=== PATIENT | female | born 1930 | race Caucasian/White ===

== ENCOUNTER 2019-01-06 09:48 | Inpatient (IN) ==
[2019-01-06 10:19] LABS: Bilirubin,Urine Negative (Negative); Blood,Urine Negative (Negative); Clarity,Urine Clear (Clear); Color,Urine Yellow (Yellow); Glucose,Urine (UA) Normal (Normal); Ketones,Urine Negative (Negative); Leukocyte Esterase,Urine Negative (Negative); Nitrite,Urine Negative (Negative); PH,Urine 7.5 pH Units (5.0-8.0); Protein,Urine 100 mg/dL (Neg-Trace); Urobilinogen,Urine Normal (Normal)
[2019-01-06 10:27] LABS: Hyaline Casts,Urine Few per lpf (None-Few)
[2019-01-06 10:28] LABS: Granular Casts,Urine Few per lpf (None Seen)
[2019-01-06 10:30] LABS: RBC,Urine 0-3 per hpf (0-3); WBC,Urine 0-3 per hpf (0-3); White Blood Cell Casts,Urine Few per lpf (None Seen)
[2019-01-06 10:31] LABS: Amorphous Sediment,Urine Few (Few); Bacteria,Urine Few per hpf (None-Few)
--- NOTE | 2019-01-06 10:40 | Emergency Department Note ---
Disposition Clinical Impression: HCAP (healthcare-associated pneumonia) Disposition: Admitted As Inpatient Condition: Fair General Adult HPI - General Chief complaint: ED General Medical Stated complaint: low BP Time Seen by Provider: 01/06/19 09:56 Source: patient, EMS Mode of arrival: EMS Limitations: other (History dementia) Nursing Notes Reviewed: Yes Vital Signs Reviewed: Yes - History of Present Illness HPI Narrative: 88-year-old female coming from halfway history of dementia presents to the emergency department with low blood pressure and irregular heart rate. According to staff they said they got 1 blood pressure of 80/60 the staff prior to that one hour earlier got a normal blood pressure of 120/80. He also knows that her heart rate was ranging everywhere from 70-90. She also had a pulse ox level of 88. She does have oxygen to use when necessary the place that on her and she is been 93% since then. They called EMS for transport due to these changes. EMS arrived they said they had normal blood pressure of 120/80 heart rate has been 80 the entire time and they said was 93% on the 2 L that she was on via nasal cannula. Patient is not having any complaints at this time but is a poor historian due to dementia. Her only POA is her 90-year-old sister who is in the same halfway and is unable to come. There is no other family with the patient. Otherwise patient has no other complaints. The at the halfway said she had UTI approximately one week ago was on antibiotics and finished up a seen sooner been the same since then. Otherwise no other complaints including fevers, chills, nausea, vomiting, headache, blurry vision, neck pain, back pain, chest pain, shortness of breath, abdominal pain, change in bowel, pain with urination, pain or tingling in any arms or legs or generalized weakness. Pain Scale: 0 - Related Data Allergies Allergy/AdvReac Type Severity Reaction Status Date / Time No Known Allergies Allergy Verified 01/06/19 09:59 All systems ED: reviewed and negative except as stated. Review of Systems: As Per HPI Past Medical History - Past Medical History Attestation: Yes The following information was validated with the patient. Source: patient Medical history: Reports: CHF, CVA, dementia, hyperlipidemia, hypertension, thyroid disease, syncope Psychiatric history: Reports: anxiety, depression, schizophrenia - Social History Smoking Status: Unknown if ever smoked Alcohol use: Reports: none Drug use: Reports: none Physical Exam - General General appearance: alert - Head Head exam: atraumatic, normocephalic, normal inspection - Eye Eye exam: Present: normal appearance, PERRL, EOMI, other (2 mm pupils bilaterally.) - ENT ENT exam: normal exam, normal oropharynx, mucous membranes moist - Neck Neck exam: Present: normal inspection, full ROM, trachea midline - Chest Chest inspection: Present: normal inspection, symmetric chest wall rise - Respiratory Respiratory exam: Present: normal lung sounds bilaterally - Cardiovascular Cardiovascular exam: Present: regular rate, normal rhythm, normal heart sounds - Abdominal Exam Abdominal exam: Present: soft, Non-Tender, normal bowel sounds. Absent: tenderness, distention, guarding, rebound, rigidity - Extremities Exam Extremities exam: Present: normal inspection, full ROM. Absent: tenderness, pedal edema - Back Exam Back exam: Present: normal inspection, full ROM. Absent: tenderness, CVA tenderness (R), CVA tenderness (L) - Neurological Exam Neurological exam: Present: alert. Absent: oriented X3 (Oriented [address] which is normal for her dementia history.), motor sensory deficit - Skin Skin exam: Present: warm, dry, intact, normal color Course Course Narrative: There is been no recent falls or noticeable altered mental status based on her history of dementia. We will get basic labs including CBC, BMP, troponin EKG chest x-ray as well as straight catheter urinalysis. Patient okay with this plan. Disposition pending results. Vital Signs Temperature 98.8 F 01/06/19 09:51 Pulse Rate 81 01/06/19 09:51 Respiratory Rate 19 01/06/19 09:51 Blood Pressure 126/60 01/06/19 09:51 O2 Sat by Pulse Oximetry 93 01/06/19 09:51 Temperature 97.6 F 01/06/19 12:06 Pulse Rate 100 01/06/19 12:06 Respiratory Rate 24 01/06/19 12:06 Blood Pressure 135/67 01/06/19 12:06 O2 Sat by Pulse Oximetry 94 01/06/19 12:06 Oxygen Delivery Oxygen Delivery Room Air Medical Decision Making - MDM Narrative Medical decision making narrative: Labs came back with no acute abnormalities. Patient's blood pressure is been stable here the lowest being 126/80 heart rate also was normal EKG had no acute findings. Chest x-ray did show a pneumonia with bilateral pleural effusions. Due to patient being a halfway this most likely his hospital acquired pneumonia so we did start treatment including Zosyn, vancomycin, azithromycin. Patient is stable at this time. I spoke with the hospitalist Dr. Zarco who agreed to admit the patient to their service for hospital acquired pneumonia. Patient stable at this time Spoke with the nursing facility staff and they said they have documentation where she is a full code and her POA is her 90-year-old sister who also is living at the nursing facility is unable to come to the emergency department. Chest X-Ray 01/06/19 09:58 IMPRESSION: Small to moderate left pleural effusion and left basilar consolidation. Patchy right mid to lower lung infiltrate. Findings may reflect multifocal pneumonia and left parapneumonic effusion in the correct clinical setting. D/ / 01/06/2019 10:59:32 Diego Zarco MD / Alyx Foster Interpreting Provider: Diego Zarco MD - Medical Records Medical records reviewed: Yes I reviewed the patient's medical records. - Lab Data Lab results reviewed: Yes I reviewed the patient's lab results. Result diagrams: 01/06/19 10:51 01/06/19 10:51 Lab Results 01/06/19 01/06/19 01/06/19 Range/Units 10:51 10:51 Unknown WBC 8.2 (4.3-11.1) K/mcL RBC 4.28 (3.82-4.97) M/mcL Hgb 12.1 (11.5-15.4) g/dL Hct 38.1 (35.3-44.9) % MCV 89.0 (83.0-100.0) fL MCH 28.3 (28.0-33.3) pg MCHC 31.8 (31.6-35.5) g/dL RDW 15.0 H (11.5-14.5) % Plt Count 268 (140-400) K/mcL MPV 9.0 L (9.4-12.4) fL Immature Gran % 0.5 (0-4) % Seg Neutrophils % 67.7 % Lymphocytes % 19.0 % Monocytes % 10.5 % Eosinophils % 1.7 % Basophils % 0.6 % Neutrophils # 5.5 (1.6-8.9) K/mcL Lymphocytes # 1.6 (0.6-4.6) K/mcL Monocytes # 0.9 (0.0-1.3) K/mcL Eosinophils # 0.1 (0.0-0.6) K/mcL Basophils # 0.1 (0.0-0.2) K/mcL Sodium 132 L (136-145) mEq/L Potassium 4.0 (3.5-5.1) mEq/L Chloride 100 (98-107) mEq/L Carbon Dioxide 26 (23-29) mEq/L BUN 15 (8-23) mg/dL Creatinine 1.14 (0.60-1.20) mg/dL Est GFR ( Amer) 55 L (> 60) Est GFR (Non-Af Amer) 45 L (> 60) BUN/Creatinine Ratio 13 (6-26) Glucose 116 H (70-105) mg/dL Calculated Osmolality 276 L (280-300) Calcium 8.7 (8.6-10.3) mg/dL Magnesium 2.1 (1.6-2.6) mg/dL Troponin I < 0.03 (< 0.04) ng/mL Urine Color Yellow (Yellow) Urine Clarity Clear (Clear) Urine pH 7.5 (5.0-8.0) pH Units Ur Specific [place] 1.020 (1.010-1.025) Urine Protein 100 H (Neg-Trace) mg/dL Urine Glucose (UA) Normal (Normal) mg/dL Urine Ketones Negative (Negative) mg/dL Urine Blood Negative (Negative) Urine Nitrite Negative (Negative) Urine Bilirubin Negative (Negative) Urine Urobilinogen Normal (Normal) mg/dL Ur Leukocyte Esterase Negative (Negative) Urine Microscopic RBC 0-3 (0-3) per hpf Urine Microscopic WBC 0-3 (0-3) per hpf Amorphous Sediment Few (Few) Urine Bacteria Few (None-Few) per hpf Hyaline Casts Few (None-Few) per lpf Granular Casts Few H (None Seen) per lpf WBC Casts Few H (None Seen) per lpf Ur Culture Indicated? NO (NO) - Radiology Data Radiology results reviewed: Yes I reviewed the patient's radiology results. - EKG Data EKG #1 EKG attestation: Yes I reviewed and interpreted this EKG. EKG results narrative: EKG done at 0957 shows sinus rhythm at a rate of 82, SD interval 158, QRS 85, QTC 448. There is no acute ST changes no acute T-wave changes no other signs of ischemia. There is some sinus positive this but is regular. No hypertrophy, heart block, heart strain. No Alyx Peter V/V/HOCM. No changes when compared with old EKG Attestation Statement - Attestation Attestation: I, Keagan Mullen, examined this patient and my medical decision-making was reviewed with the TRAVEL DIRECTOR/PA/Advanced Practice Nurse/Resident Physician. I agree with the documented findings, disposition and treatment plan as described except to the extent set forth below. History source: Patient is unable to provide information for this note. Info was gathered from the patient, hospital staff, the patient's chart. History limitations: Patient condition Medications: As per nurses note 88-year-old female presents emergency Department with concerns of low blood pressure and hypoxia. Patient was sent in the emergency department from the halfway. Patient is unable to give a history regarding her case and presentation. Patient has infiltrate on chest x-ray which could be the source of her hypoxia. Patient has remained stable in emergency department. She will be started on antibiotics in the emergency department and will be admitted to [facility] hospitalist for further care and evaluation.
[2019-01-06 11:05] LABS: Basophils # 0.1 K/mcL (0.0-0.2); Basophils % 0.6 %; Eosinophils # 0.1 K/mcL (0.0-0.6); Eosinophils % 1.7 %; Hematocrit 38.1 % (35.3-44.9); Hemoglobin 12.1 g/dL (11.5-15.4); Immature Granulocytes % 0.5 % (0-4); Lymphocytes # 1.6 K/mcL (0.6-4.6); Mean Corpuscular HGB Conc 31.8 g/dL (31.6-35.5); Mean Corpuscular Hemoglobin 28.3 pg (28.0-33.3); Monocytes # 0.9 K/mcL (0.0-1.3); Monocytes % 10.5 %; Neutrophils # 5.5 K/mcL (1.6-8.9); Platelet Count 268 K/mcL (140-400); Red Blood Count 4.28 M/mcL (3.82-4.97); Segmented Neutrophils % 67.7 %
[2019-01-06 11:23] LABS: Troponin I < 0.03 ng/mL (< 0.04)
[2019-01-06 11:24] LABS: BUN/Creatinine Ratio 13 (6-26); Blood Urea Nitrogen 15 mg/dL (8-23); Calcium 8.7 mg/dL (8.6-10.3); Carbon Dioxide 26 mEq/L (23-29); Chloride 100 mEq/L (98-107); Glucose 116 mg/dL (70-105); Magnesium 2.1 mg/dL (1.6-2.6); Osmolality,Calculated 276 (280-300); Sodium 132 mEq/L (136-145); eGFR For Non-African Americans 45 (> 60)
[2019-01-06] MEDS ORDERED: Piperacillin/Tazobactam 3.375 GM in 0.9 % Sodium Chloride Mini Bag 100 ML IVPB ONE (13:23)
[2019-01-06] MEDS ORDERED: Azithromycin 500 MG in D5% in Water 250 ML IVPB ONE (13:23)
[2019-01-06] MEDS ORDERED: Naloxone 0.4 MG/ML INJ IVP PRN (15:47)
--- NOTE | 2019-01-06 16:59 | Internal Med History&Physical ---
Date of Encounter: 01/06/19 Time of Encounter: 17:00 Internal Medicine - H&P: HPI Chief complaint: Hypotensive, less responsive and hypoxic per shelter History of present illness: Ms. Cabral is a 88 year old female with pmh of dementia, hyperlipidemia, thyroid disease presenting from shelter with hypotension, irregular heart rate and hypoxia. History was obtained from ER and shelter records as patient has dementia and is unable to provide any information. Per shelter staff, patient was reported to have a BP of 80/60. She was also noted to be desa turating to 88, and she is reportedly not on home oxygen; she was also noted to be more lethargic than her baseline and that's why they called EMS In the ER, she was noted to have a small to moderate left pleural effusion and left basilar consolidation. She was started on antibiotics and she is being admitted for health care associated pneumonia Past Med Surg Social Fam HX - Past Medical History Medical history: CHF, CVA, dementia, hyperlipidemia, hypertension, thyroid disease, syncope Additional medical history: parkinson's Psychiatric history: anxiety, depression, schizophrenia - Social History Smoking Status: Unknown if ever smoked Alcohol use: none Drug use: none Internal Medicine - H&P: Meds Allergy/AdvReac Type Severity Reaction Status Date / Time No Known Allergies Allergy Verified 01/06/19 09:59 ROS unobtainable: due to mental status All Systems PM: A 10-system review of systems was performed and is negative for pertinent findings except as documented above in the HPI. - Constitutional Vitals: Temp Pulse Resp BP Pulse Ox 97.6 F 80 21 106/53 94 01/06/19 12:06 01/06/19 16:07 01/06/19 16:43 01/06/19 16:43 01/06/19 16:07 Exam: NAD. Confused - Head Head exam: Present: atraumatic, normocephalic - Eye Eye exam: Present: PERRL, conjuntiva pink, sclera anicteric Pupils: Present: PERRL - Neck Neck exam general surgery: Present: supple, trachea midline. Absent: lymphadenopathy - Respiratory Respiratory exam: Present: CTAB. Absent: accessory muscle use, rales, rhonchi, wheezes - Cardiovascular Cardiovascular exam: Present: irregular rhythm, RRR, +S1, +S2. Absent: diastolic murmur, gallop, rubs, systolic murmur - GI/Abdominal GI/Abdominal exam: Present: normal bowel sounds, soft, no peritoneal signs. Absent: distended, tenderness - Extremities Exam Extremities exam: Present: warm, radial pulses palpable and symmetrical. Absent: calf tenderness, cyanotic, pedal edema - Neurological Exam Neurological exam: Present: CN II-XII intact, oriented X3, no focal deficits. Absent: pronater drift, facial droop, speech deficit - Skin Skin exam: Present: dry, intact Internal Med - H&P Results - Labs CBC & Chem 7: 01/06/19 10:51 01/06/19 10:51 Labs: Short CBC 01/06/19 Range/Units 10:51 WBC 8.2 (4.3-11.1) K/mcL Hgb 12.1 (11.5-15.4) g/dL Hct 38.1 (35.3-44.9) % Plt Count 268 (140-400) K/mcL Neutrophils # 5.5 (1.6-8.9) K/mcL BMP 01/06/19 10:51 Sodium 132 L Potassium 4.0 Chloride 100 Carbon Dioxide 26 BUN 15 Creatinine 1.14 Glucose 116 H Calcium 8.7 Cardiac Enzymes 01/06/19 Range/Units 10:51 Troponin I < 0.03 (< 0.04) ng/mL Urine 01/06/19 Range/Units Unknown Urine Color Yellow (Yellow) Urine Clarity Clear (Clear) Urine pH 7.5 (5.0-8.0) pH Units Ur Specific [place] 1.020 (1.010-1.025) Urine Protein 100 H (Neg-Trace) mg/dL Urine Glucose (UA) Normal (Normal) mg/dL - Impressions ITS Impressions Chest X-Ray 01/06/19 09:58 IMPRESSION: Small to moderate left pleural effusion and left basilar consolidation. Patchy right mid to lower lung infiltrate. Findings may reflect multifocal pneumonia and left parapneumonic effusion in the correct clinical setting. D/ / 01/06/2019 10:59:32 Diego Zarco MD / Alyx Foster Interpreting Provider: Diego Zarco MD - Assessment and plan (1) HCAP (healthcare-associated pneumonia) Current Visit: Yes Status: Acute Assessment and plan: Pt comes in with hypoxia and hypotension likely secondary to multifocal pnuemonia. CXR shows consolidation and pleural effusion Obtain blood cultures. Start on zosyn. Obtain CT chest. IR consult to assess for thoracentesis (2) Hypotension Current Visit: Yes Status: Acute Assessment and plan: See #1. Continue fluids and antibiotics Qualifiers: Qualified Code(s): I95.9 - Hypotension, unspecified (3) Hypoxia Current Visit: Yes Status: Acute Assessment and plan: [place] 2/2 to pnuemonia. continue fluids and abx (4) DVT prophylaxis Current Visit: Yes Status: Acute Assessment and plan: Heparin sc - Time Spent With Patient Total time spent is greater than 50% in coordination of care (as documented) at patient's floor/unit and/or counseling patient:
[2019-01-06] MEDS: 0.9 % Sodium Chloride 1,000 ML IVC SCH (17:56)
[2019-01-06] MEDS: Piperacillin/Tazobactam 3.375 GM in 0.9 % Sodium Chloride Mini Bag 100 ML IVPB SCH (21:36)
[2019-01-07 04:44] LABS: Basophils # 0.1 K/mcL (0.0-0.2); Basophils % 0.8 %; Eosinophils # 0.1 K/mcL (0.0-0.6); Eosinophils % 2.1 %; Hematocrit 41.6 % (35.3-44.9); Hemoglobin 12.7 g/dL (11.5-15.4); Immature Granulocytes % 0.6 % (0-4); Lymphocytes # 1.3 K/mcL (0.6-4.6); Lymphocytes % 19.2 %; Mean Corpuscular HGB Conc 30.5 g/dL (31.6-35.5); Mean Corpuscular Hemoglobin 28.2 pg (28.0-33.3); Mean Corpuscular Volume 92.4 fL (83.0-100.0); Mean Platelet Volume 9.4 fL (9.4-12.4); Monocytes # 0.6 K/mcL (0.0-1.3); Monocytes % 9.1 %; Neutrophils # 4.5 K/mcL (1.6-8.9); Platelet Count 232 K/mcL (140-400); Red Cell Distribution Width 14.6 % (11.5-14.5); Segmented Neutrophils % 68.2 %
[2019-01-07 05:06] LABS: BUN/Creatinine Ratio 15 (6-26); Blood Urea Nitrogen 13 mg/dL (8-23); Calcium 8.2 mg/dL (8.6-10.3); Carbon Dioxide 26 mEq/L (23-29); Chloride 104 mEq/L (98-107); Glucose 110 mg/dL (70-105); Magnesium 1.9 mg/dL (1.6-2.6); Osmolality,Calculated 283 (280-300); Phosphorous 3.4 mg/dL (2.7-4.5); Potassium 3.9 mEq/L (3.5-5.1); Sodium 136 mEq/L (136-145); eGFR For Non-African Americans > 60 (> 60)
[2019-01-07] MEDS: Piperacillin/Tazobactam 3.375 GM in 0.9 % Sodium Chloride Mini Bag 100 ML IVPB SCH ×3 (06:45→22:21)
--- NOTE | 2019-01-07 11:25 | Internal Med Progress Note ---
Hospitalist Progress Note - Encounter Date of Encounter: 01/07/19 Time of Encounter: 11:25 - Subjective Interval History: 88 year old female with pmh of dementia, hyperlipidemia, thyroid disease presenting from alf with hypotension, irregular heart rate and hypoxia. History was obtained from ER and alf records as patient has dementia a nd is unable to provide any information. Per alf staff, patient was reported to have a BP of 80/60. She was also noted to be desaturating to 88, and she is reportedly not on home oxygen; she was also noted to be more lethargic than her baseline and that's why they called EMS - Exam Vitals: Temp Pulse Resp BP Pulse Ox 98.3 F 105 18 150/75 95 01/07/19 07:30 01/07/19 07:30 01/07/19 07:30 01/07/19 07:30 01/07/19 07:30 Exam: Gen - Awake, alert, oriented x 3, no acute distress HEENT - NCAT, PERRLA, EOMI, hearing grossly intact, oropharynx benign CV - RRR, normal S1 and S2, no M/R/G, no BLE edema Resp - Normal WOB, CTAB, no W/R/R GI - Soft, NT/ND, no masses, normal bowel sounds, Skin - Warm, dry, no rashes/lesions/ulcers Psych - Normal mood and affect, no depression or anxiety - Assessment and Plan (1) HCAP (healthcare-associated pneumonia) Current Visit: Yes Status: Acute Assessment and Plan: Pt comes in with hypoxia and hypotension likely secondary to multifocal pnuemonia. CXR shows consolidation and pleural effusion Obtain blood cultures. Start on zosyn. CT chest showed biateral pleural effusions. Patient does not appear to be on diuresis at the alf Refused thoracentesis this am. Obtain 2D echo to assess cardiac function to r/o CHF Palliative care consulted for custodial goals of care (2) Congestive heart failure Current Visit: Yes Status: Acute Assessment and Plan: Patient has unknown EF and unknown cardiac status. HAs bilateral pleural effusion. Will start on lasix and obtain 2D echo (3) Hypotension Current Visit: Yes Status: Acute Assessment and Plan: See #1. Continue fluids and antibiotics (4) Hypothyroidism Current Visit: Yes Status: Acute Assessment and Plan: Continue levothyroxine (5) Hypoxia Current Visit: Yes Status: Acute Assessment and Plan: [place] 2/ to pnuemonia. continue fluids and abx (6) DVT prophylaxis Current Visit: Yes Status: Acute Assessment and Plan: Heparin sc - Time Spent with Patient Total time spent is greater than 50% in coordination of care (as documented) at patient's floor/unit and/or counseling patient: Internal Medicine: Result - Labs CBC & Chem 7: 01/07/19 04:11 01/07/19 04:11 Labs: Short CBC 01/07/19 Range/Units 04:11 WBC 6.6 (4.3-11.1) K/mcL Hgb 12.7 (11.5-15.4) g/dL Hct 41.6 (35.3-44.9) % Plt Count 232 (140-400) K/mcL Neutrophils # 4.5 (1.6-8.9) K/mcL BMP 01/07/19 04:11 Sodium 136 Potassium 3.9 Chloride 104 Carbon Dioxide 26 BUN 13 Creatinine 0.84 Glucose 110 H Calcium 8.2 L - Impressions Impressions Chest CT 01/06/19 17:23 IMPRESSION: Cardiomegaly, moderate bilateral pleural effusions and pulmonary edema. Dependent consolidation associated with the effusions likely represents passive atelectasis. Pneumonia is also possible. Small pericardial effusion. D/ / Kirsten Capps Cha, MD / Kirsten Capps Cha, MD Interpreting Provider: Kirsten Capps Cha, MD Consult Discharge Plan - Plan Referrals: Moreno Ramirez MD [Primary Care Provider] - (3) Hypotension Qualifiers: Qualified Code(s): I95.9 - Hypotension, unspecified
[2019-01-07] MEDS: Furosemide 20 MG/2 ML VIAL IVP SCH ×2 (12:35→22:21)
--- NOTE | 2019-01-07 14:25 | Palliative - Consult Note ---
Date of Encounter: 01/07/19 Time of Encounter: 13:30 - Assessment and Plan (1) Goals of care, counseling/discussion Current Visit: Yes Status: Acute Assessment and plan: Met with patient regarding goals of care. Patient expressed desire to return to [facility], reports she wishes she would have never came to hospital. Prior to assessment, spent 20 minutes with patient's sister and niece Maddy via telephone regarding goals of care. Sadie (sister) reports she is MPOA; however, does not really want to make decisions. Keeps asking what patient wants. Informed would meet with patient and then return phone call. Upon completion of assessment, called and spoke with Patient's MPOA/Sister Sadie via telephone again, as well as Maddy (niece). Gave update on what patient was telling this automobile service writer. Expressed would not want patient intubated, reported they would not want CPR performed. Change CODE STATUS to DNRCCA/DNI. Would like for patient to continue getting treatment here at [facility]. They do not feel justified in forcing patient to have thoracentesis. Sadie has difficulty making decisions without prompting from daughter Maddy. Maddy reports there is another sibling Jeronimo; however, noone has contact information for him. Sadie would like to have clinical update daily to make best decisions regarding her sister. Understands there are risks of not performing procedure, including not breathing and lung collapse. Sadie Riggs (Sister/MPOA) [phone] Bettina Riggs (Niece) [phone] Jeronimo Chaneyffe (brother) Palliative care team will continue to follow. (2) Dementia Current Visit: Yes Status: Acute Qualifiers: Qualified Code(s): F03.90 - Unspecified dementia without behavioral disturbance (3) HCAP (healthcare-associated pneumonia) Current Visit: Yes Status: Acute Assessment and plan: IV antibiotics per primary team. (4) Hypotension Current Visit: Yes Status: Acute Assessment and plan: BP stable. Qualifiers: Qualified Code(s): I95.9 - Hypotension, unspecified (5) Hypoxia Current Visit: Yes Status: Acute Assessment and plan: 93% on 2.5L NC. Palliative-CN HPI - Data of Consult Patient: new to practice Consult date: 01/07/19 Requesting Physician: Reny Zarco MD Primary Care Provider: Moreno Ramirez MD - Consult Narrative Palliative Care/Comfort Measures: Palliative care Reason for consult: GOC; Pleural effusion, refusing thoracentesis; demenia; and MPOA dementia History of present illness: Ms. Cabral is a 88 year old female Arrived to [facility] as a transfer from [facility] on 01/06/19, due to low blood pressure, less responsive, and hypoxia. PMH: CHF, CVA, dementia, hyperlipidemia, hypertension, thyroid disease, syncope, anxiety, depression, schizophrenia, and Parkinsons disease. Patient found to have bilateral pleural effusions and atelectasis; IV antibiotics initiated for HCAP. IR consulted for Thoracentesis, patient refused. Palliative care consulted for goals of care, pleural effusion refusing thora centesis, and has dementia. Patient lying in bed with head covered upon arrival for assessment. Patient alert and oriented with verbal stimulation. Patient able to identify she is in a hospital, reported it is 2017, President Karely is President, lives at [place], and was able to self identify, as well as identify sister Sadie and Brother as Jeronimo. No family present at bedside. Patient denies pain, anxiety, dyspnea, nausea, vomiting. Prior to patient assessment, called and spoke with staff at [facility]. Patient's sister Sadie was reported to be oriented, alert, and lacking dementia diagn osis. CC: Reny Zarco MD - Time Spent with Patient Time: Total time spent is greater than 50% in coordination of care (as documented) at patient's floor/unit and/or counseling patient: Time with patient: 60 minutes Past Med Surg Social Fam HX - Past Medical History Medical history: CHF, CVA, dementia, hyperlipidemia, hypertension, thyroid disease, syncope Additional medical history: parkinson's Psychiatric history: anxiety, depression, schizophrenia - Social History Smoking Status: Unknown if ever smoked Alcohol use: none Drug use: none Medications and Allergies Allergy/AdvReac Type Severity Reaction Status Date / Time No Known Allergies Allergy Verified 01/06/19 09:59 - Constitutional Constitutional ROS PAL: no decreased appetite, no frequent falls, no lethargy - Cardiovascular Cardiovascular ROS: no chest pain, no dyspnea on exertion - Respiratory Respiratory: cough, no dyspnea - Gastrointestinal Gastrointestinal: no diarrhea, no nausea, no vomiting - Musculoskeletal Musculoskeletal ROS IM: myalgias (right shoulder pain, sometimes.) - Neurological Neurological ROS: memory loss - Psychiatric Psychiatric general PM: anxiety, difficulty concentrating Palliative Care-Exam - Constitutional Vitals: Temp Pulse Resp BP Pulse Ox 97.8 F 109 16 112/69 93 01/07/19 11:31 01/07/19 11:31 01/07/19 11:31 01/07/19 11:31 01/07/19 11:31 General appearance: Present: cooperative, disheveled, no acute distress, obese - Head Head Exam: Present: atraumatic, normal inspection - Eye Eye exam: Present: normal appearance, conjuntiva pink. Absent: periorbital swelling, periorbital tenderness - ENT ENT exam: Present: mucous membranes dry, normal external ear exam - Expanded ENT Exam Mouth Exam: Absent: drooling - Neck Neck exam: Present: full ROM, normal inspection. Absent: tenderness - Respiratory Respiratory exam: Present: accessory muscle use, decreased breath sounds, wheezes. Absent: respiratory distress - Cardiovascular Cardiovascular exam: Present: +S1, +S2 - GI/Abdominal Exam GI/Abdominal exam: Present: normal bowel sounds, soft. Absent: tenderness - Expanded GI/Abdominal Exam GI/Abdominal exam: Absent: ascites - Rectal Rectal exam: Present: deferred - Extremities Exam Extremities exam: Present: full ROM, normal inspection. Absent: calf tenderness, pedal edema - Back Exam Back exam: Present: full ROM, normal inspection. Absent: rash noted, tenderness - Neurological Exam Neurological exam: Present: alert, strengths equal and symetr throughout. Absent: altered, oriented X3 (disoriented times 1 year) - Expanded Neurological Exam Patient oriented to: Present: person, place. Absent: time Coma Scale Eye Opening: To Voice Coma Scale Motor Response: Obeys Commands Coma Scale Verbal Response: Oriented Coma Scale Total: 14 Internal Medicine - CN: Reslt - Labs CBC & Chem 7: 01/07/19 04:11 01/07/19 04:11 Labs: Short CBC 01/07/19 Range/Units 04:11 WBC 6.6 (4.3-11.1) K/mcL Hgb 12.7 (11.5-15.4) g/dL Hct 41.6 (35.3-44.9) % Plt Count 232 (140-400) K/mcL Neutrophils # 4.5 (1.6-8.9) K/mcL BMP 01/07/19 04:11 Sodium 136 Potassium 3.9 Chloride 104 Carbon Dioxide 26 BUN 13 Creatinine 0.84 Glucose 110 H Calcium 8.2 L - Impressions Impressions Chest CT 01/06/19 17:23 IMPRESSION: Cardiomegaly, moderate bilateral pleural effusions and pulmonary edema. Dependent consolidation associated with the effusions likely represents passive atelectasis. Pneumonia is also possible. Small pericardial effusion. D/ / Kirsten Capps Cha, MD / Kirsten Capps Cha, MD Interpreting Provider: Kirsten Capps Cha, MD Consult Discharge Plan - Plan Referrals: Moreno Ramirez MD [Primary Care Provider] - Palliative Quality Palliative Quality: Screen for Code Status: Yes, Screen for Goals of Care: Yes, Screen for Pain: Yes, If Pain Regimen Started, Initiate Bowel Regimen: NA, Screen for Nausea/Vomitting: Yes Code Status: 01/06/19 15:47 Resuscitation Status: Active [RES] Routine Comment: Resuscitation Status: Full Code Palliative Scale - Palliative Performance Scale How ambulatory is this patient?: Mainly sit / lie What is patient's level of activity and evidence of disease?: Unable hobby/housework, Significant disease How much self-care assistance does patient require?: Considerable assistance required How much oral intake does the patient have?: Normal or reduced What is this patient's level of consciousness?: Full or confusion Palliative Performance Score: 70 %
[2019-01-07] MEDS: Carbidopa/Levodopa 25/100 TABLET PO SCH ×2 (15:09→22:21)
[2019-01-08 04:08] LABS: Basophils # 0.1 K/mcL (0.0-0.2); Basophils % 0.8 %; Eosinophils # 0.3 K/mcL (0.0-0.6); Eosinophils % 4.2 %; Hemoglobin 11.8 g/dL (11.5-15.4); Immature Granulocytes % 0.3 % (0-4); Lymphocytes # 1.7 K/mcL (0.6-4.6); Lymphocytes % 26.7 %; Mean Corpuscular HGB Conc 31.1 g/dL (31.6-35.5); Mean Platelet Volume 9.5 fL (9.4-12.4); Monocytes # 0.6 K/mcL (0.0-1.3); Monocytes % 9.2 %; Neutrophils # 3.8 K/mcL (1.6-8.9); Platelet Count 274 K/mcL (140-400); Red Blood Count 4.22 M/mcL (3.82-4.97); Red Cell Distribution Width 14.6 % (11.5-14.5); Segmented Neutrophils % 58.8 %
[2019-01-08 04:27] LABS: BUN/Creatinine Ratio 16 (6-26); Blood Urea Nitrogen 13 mg/dL (8-23); Calcium 8.3 mg/dL (8.6-10.3); Carbon Dioxide 29 mEq/L (23-29); Chloride 105 mEq/L (98-107); Glucose 111 mg/dL (70-105); Magnesium 1.8 mg/dL (1.6-2.6); Osmolality,Calculated 289 (280-300); Phosphorous 2.9 mg/dL (2.7-4.5); Potassium 3.6 mEq/L (3.5-5.1); Sodium 139 mEq/L (136-145); eGFR For Non-African Americans > 60 (> 60)
[2019-01-08] MEDS: Piperacillin/Tazobactam 3.375 GM in 0.9 % Sodium Chloride Mini Bag 100 ML IVPB SCH (06:16)
[2019-01-08] MEDS: 0.9 % Sodium Chloride 1,000 ML IVC SCH (06:17)
[2019-01-08] MEDS: Carbidopa/Levodopa 25/100 TABLET PO SCH ×2 (08:57→14:00)
[2019-01-08] MEDS: Furosemide 20 MG/2 ML VIAL IVP SCH (08:57)
[2019-01-08] MEDS ORDERED: Aspirin 81 MG TAB.CHEW PO SCH (09:00)
--- NOTE | 2019-01-08 09:52 | Internal Med Progress Note ---
Hospitalist Progress Note - Encounter Date of Encounter: 01/08/19 Time of Encounter: 09:50 - Subjective Interval History: 88 year old female with pmh of dementia, hyperlipidemia, thyroid disease presenting from detention with hypotension, irregular heart rate and hypoxia. History was obtained from ER and detention records as patient has dementia a nd is unable to provide any information. Per detention staff, patient was reported to have a BP of 80/60. She was also noted to be desaturating to 88, and she is reportedly not on home oxygen; she was also noted to be more lethargic than her baseline and that's why they called EMS - Exam Vitals: Temp Pulse Resp BP Pulse Ox 98.0 F 99 18 156/84 92 01/08/19 06:58 01/08/19 06:58 01/08/19 06:58 01/08/19 06:58 01/08/19 09:10 Exam: Gen - Awake, alert, oriented x 3, no acute distress HEENT - NCAT, PERRLA, EOMI, hearing grossly intact, oropharynx benign CV - RRR, normal S1 and S2, no M/R/G, no BLE edema Resp - Normal WOB, CTAB, no W/R/R GI - Soft, NT/ND, no masses, normal bowel sounds, Skin - Warm, dry, no rashes/lesions/ulcers Psych - Normal mood and affect, no depression or anxiety - Assessment and Plan (1) HCAP (healthcare-associated pneumonia) Status: Acute Assessment and Plan: Pt comes in with hypoxia and hypotension likely secondary to multifocal pnuemonia. CXR shows consolidation and pleural effusion Obtain blood cultures. Start on zosyn. CT chest showed biateral pleural effusions. Patient does not appear to be on diuresis at the detention Refused thoracentesis this am. 2D echo came back with preserved EF and diastolic CHF Palliative care consulted for intermediate card tender goals of care (2) Congestive heart failure Status: Acute Assessment and Plan: Patient has unknown EF and unknown cardiac status. Has bilateral pleural effusion. Will start on lasix and obtain 2D echo Echo came back with diastolic dysfunction and preserved EF (3) Hypotension Status: Acute Assessment and Plan: See #1. Continue fluids and antibiotics (4) Hypothyroidism Status: Acute Assessment and Plan: Continue levothyroxine (5) Hypoxia Status: Acute Assessment and Plan: Jeff / to pnuemonia. continue fluids and abx (6) DVT prophylaxis Status: Acute Assessment and Plan: Heparin sc - Time Spent with Patient Total time spent is greater than 50% in coordination of care (as documented) at patient's floor/unit and/or counseling patient: Internal Medicine: Result - Labs CBC & Chem 7: 01/08/19 03:40 01/08/19 03:40 Labs: Short CBC 01/08/19 Range/Units 03:40 WBC 6.4 (4.3-11.1) K/mcL Hgb 11.8 (11.5-15.4) g/dL Hct 38.0 (35.3-44.9) % Plt Count 274 (140-400) K/mcL Neutrophils # 3.8 (1.6-8.9) K/mcL BMP 01/08/19 03:40 Sodium 139 Potassium 3.6 Chloride 105 Carbon Dioxide 29 BUN 13 Creatinine 0.83 Glucose 111 H Calcium 8.3 L - Impressions Impressions Chest X-Ray 01/06/19 09:58 IMPRESSION: Small to moderate left pleural effusion and left basilar consolidation. Patchy right mid to lower lung infiltrate. Findings may reflect multifocal pneumonia and left parapneumonic effusion in the correct clinical setting. D/ / 01/06/2019 10:59:32 Diego Zarco MD / Alyx Foster Interpreting Provider: Diego Zarco MD Consult Discharge Plan - Plan Instructions: Hypotension (DC), Altered Mental Status (GEN), Hypoxemia (DC) Referrals: Moreno Ramirez MD [Primary Care Provider] - Prescriptions: Furosemide [Lasix] 20 mg PO BID #60 tablet levoFLOXacin [Levaquin] 500 mg PO DAILY 3 Days #3 tablet (2) Congestive heart failure Qualifiers: Heart failure type: diastolic (3) Hypotension Qualifiers: Qualified Code(s): I95.9 - Hypotension, unspecified
[2019-01-08 10:57] VITALS: BP 128/61
--- NOTE | 2019-01-08 11:04 | Event Note ---
Date of Encounter: 01/08/19 Time of Encounter: 11:00 Patient sleeping quietly on side - awakens easily. Vitals stable. States that her shortness of breath is better. Oxygen on at 2LPM. Patient states eating well/+ BM. D/W Dr. Quezada - if CXR improved, she may be discharged back to ECF. Thus far she has refused thoracentesis and family and POA are aware. Completed DNR State form as DNR/dNI per decision yesterday so will be in place for discharge .
[2019-01-08] MEDS ORDERED: Piperacillin/Tazobactam 3.375 GM in 0.9 % Sodium Chloride Mini Bag 100 ML IVPB SCH (12:00)
--- NOTE | 2019-01-08 12:16 | Discharge Summary ---
Orders not resulted at time of discharge: Pending orders 01/06/19 13:45 Culture,Blood [BC] Stat 01/09/19 04:00 Basic Metabolic Panel AM 0400 CBC [Complete Blood Count] [HEME] AM 0400 Magnesium AM 0400 Phosphorous AM 0400 01/10/19 04:00 Basic Metabolic Panel AM 0400 CBC [Complete Blood Count] [HEME] AM 0400 Magnesium AM 0400 Phosphorous AM 0400 01/11/19 04:00 Basic Metabolic Panel AM 0400 CBC [Complete Blood Count] [HEME] AM 0400 Magnesium AM 0400 Phosphorous AM 0400 01/12/19 04:00 Basic Metabolic Panel AM 0400 CBC [Complete Blood Count] [HEME] AM 0400 Magnesium AM 0400 Phosphorous AM 0400 01/13/19 04:00 Basic Metabolic Panel AM 0400 CBC [Complete Blood Count] [HEME] AM 0400 Magnesium AM 0400 Phosphorous AM 0400 Date of Encounter: 01/08/19 Time of Encounter: 12:15 - Discharge Diagnosis (1) HCAP (healthcare-associated pneumonia) Priority: Primary Status: Acute Assessment and Plan: 88 year old female with pmh of dementia, hyperlipidemia, thyroid disease present ing from long-term with hypotension, irregular heart rate and hypoxia. History was obtained from ER and long-term records as patient has dementia and is unable to provide any information. Per long-term staff, patient was reported to have a BP of 80/60. She was also noted to be desaturating to 88, and she is reportedly not on home oxygen; she was also noted to be more lethargic than her baseline and that's why they called EMS.In the ER, she was noted to have a small to moderate left pleural effusion and left basilar consolidation She was assessed with hypoxia and hypotension likely secondary to multifocal pneumonia and acute diastolic CHF. CT chest showed consolidation and bilateral pleural effusions. She was started on antibiotics and diuretics with lasix and improved. A 2D echo showed preserved EF and diastolic dysfunction. IR was consulted for thoracentesis but patient declined. Family was notified. With stable sats, and improved pleural effusions on chest xray whe was discharged on low dose lasix BID and a coourse of antibiotics. 35 minutes was spent discharging this patient (2) Congestive heart failure Priority: Primary Status: Acute Qualifiers: Heart failure type: diastolic Qualified Code(s): I50.30 - Unspecified diastolic (congestive) heart failure (3) Hypotension Priority: Primary Status: Acute Qualifiers: Qualified Code(s): I95.9 - Hypotension, unspecified (4) Hypothyroidism Priority: Primary Status: Acute Qualifiers: Qualified Code(s): E03.9 - Hypothyroidism, unspecified (5) Hypoxia Priority: Primary Status: Acute (6) DVT prophylaxis Priority: Primary Status: Acute Hospital course: Ms. Cabral is a 88 year old female - Time Spent with Patient Total time spent providing and/or coordinating discharge services: - Discharge Medications Prescriptions: Furosemide [Lasix] 20 mg PO BID #60 tablet levoFLOXacin [Levaquin] 500 mg PO DAILY 3 Days #3 tablet Home Medications: Acetaminophen [Tylenol] 650 mg PO Q4H PRN 01/08/19 [History] Aspirin [Lo-Dose Aspirin EC] 81 mg PO 0800 01/08/19 [History] Carbidopa/Levodopa 25/100 [Sinemet 25/100] 0.5 tab PO 0400,1200,199901/08/19 [History] Fenofibrate 50 mg PO 0600 01/08/19 [History] Furosemide [Lasix] 20 mg PO BID #60 tablet 01/08/19 [Rx] Guaifenesin [Mucinex] 600 mg PO Q12H PRN 01/08/19 [History] Guaifenesin/D-Methorphan Hb/PE [Robitussin Cough-Cold Cf Liq] 10 ml PO Q6H PRN 01/08/19 [History] Hydralazine HCl 50 mg PO 0600,1800 01/08/19 [History] Ipratropium/Albuterol Neb [Duoneb] 3 ml IH Q4HR PRN 01/08/19 [History] Levothyroxine [Synthroid] 112 mcg PO 0400 01/08/19 [History] Meclizine HCl [Verticalm] 25 mg PO Q8H PRN 01/08/19 [History] Metoprolol [Lopressor] 50 mg PO 0600,1800 01/08/19 [History] Multivitamin [One Daily Essential] 1 tab PO 1800 01/08/19 [History] Nitroglycerin [Nitrostat] 0.4 mg SL Q5M PRN MDD MAX 3 DOSES NO RELIEF GO TO ED 01/08/19 [History] Ondansetron HCl [Zofran] 4 mg PO Q4H PRN 01/08/19 [History] Polyethylene Glycol 3350 [MiraLAX] 17 gm PO 1200 01/08/19 [History] Simvastatin [Zocor] 40 mg PO 1800 01/08/19 [History] levoFLOXacin [Levaquin] 500 mg PO DAILY 3 Days #3 tablet 01/08/19 [Rx] risperiDONE [RisperDAL] 0.25 mg PO 1200 01/08/19 [History] risperiDONE [Risperidone] 0.5 mg PO 0400,1800 01/08/19 [History] Allergies/Adverse Reactions: Allergy/AdvReac Type Severity Reaction Status Date / Time No Known Allergies Allergy Verified 01/06/19 09:59 Date of admission: 01/06/19 16:21 Primary care physician: Moreno Ramirez MD Consults: 01/07/19 12:38 Consult to Palliative Care [CONS] Routine Comment: Consulting Provider: Palliative Care Nicolette Reason for Consult: goals of care, pleural effusion refusing thoracentesis, has dementia and power of criminal defense attorney has dementia Call Completed: Yes 01/07/19 12:40 Consult to Equal Employment Opportunity Officer [CONS] Routine Reason for SW Consult: refusing care, has dementia and poa has dementia 01/07/19 13:35 Consult to Nurse Navigator [CONS] Routine Comment: PNEUMONIA - Constitutional Vitals: Temp Pulse Resp BP Pulse Ox 97.6 F 79 18 128/61 93 01/08/19 10:52 01/08/19 10:52 01/08/19 10:52 01/08/19 10:52 01/08/19 10:52 Exam: Gen - Awake, alert, oriented x 3, no acute distress HEENT - NCAT, PERRLA, EOMI, hearing grossly intact, oropharynx benign CV - RRR, normal S1 and S2, no M/R/G, no BLE edema Resp - Normal WOB, CTAB, no W/R/R GI - Soft, NT/ND, no masses, normal bowel sounds, Skin - Warm, dry, no rashes/lesions/ulcers Psych - Normal mood and affect, no depression or anxiety - Patient Status Disposition: Transfer Inpatient Rehab Fac Condition: Fair - Discharge Instructions Instructions: Hypotension (DC), Altered Mental Status (GEN), Hypoxemia (DC) Follow Up With: Moreno Ramirez MD [Primary Care Provider] -
--- NOTE | 2019-01-08 12:40 | Physician Discharge Referral ---
- Diagnosis (1) HCAP (healthcare-associated pneumonia) Priority: Primary Status: Acute (2) Congestive heart failure Priority: Primary Status: Acute (3) Hypotension Priority: Primary Status: Acute (4) Hypothyroidism Priority: Primary Status: Acute (5) Hypoxia Priority: Primary Status: Acute (6) DVT prophylaxis Priority: Primary Status: Acute - Transfer Medications Prescriptions: Furosemide [Lasix] 20 mg PO BID #60 tablet levoFLOXacin [Levaquin] 500 mg PO DAILY 3 Days #3 tablet Home Medications: Acetaminophen [Tylenol] 650 mg PO Q4H PRN 01/08/19 [History] Aspirin [Lo-Dose Aspirin EC] 81 mg PO 0800 01/08/19 [History] Carbidopa/Levodopa 25/100 [Sinemet 25/100] 0.5 tab PO 0400,1200,199901/08/19 [History] Fenofibrate 50 mg PO 0600 01/08/19 [History] Furosemide [Lasix] 20 mg PO BID #60 tablet 01/08/19 [Rx] Guaifenesin [Mucinex] 600 mg PO Q12H PRN 01/08/19 [History] Guaifenesin/D-Methorphan Hb/PE [Robitussin Cough-Cold Cf Liq] 10 ml PO Q6H PRN 01/08/19 [History] Hydralazine HCl 50 mg PO 0600,1800 01/08/19 [History] Ipratropium/Albuterol Neb [Duoneb] 3 ml IH Q4HR PRN 01/08/19 [History] Levothyroxine [Synthroid] 112 mcg PO 0400 01/08/19 [History] Meclizine HCl [Verticalm] 25 mg PO Q8H PRN 01/08/19 [History] Metoprolol [Lopressor] 50 mg PO 0600,1800 01/08/19 [History] Multivitamin [One Daily Essential] 1 tab PO 1800 01/08/19 [History] Nitroglycerin [Nitrostat] 0.4 mg SL Q5M PRN MDD MAX 3 DOSES NO RELIEF GO TO ED 01/08/19 [History] Ondansetron HCl [Zofran] 4 mg PO Q4H PRN 01/08/19 [History] Polyethylene Glycol 3350 [MiraLAX] 17 gm PO 1200 01/08/19 [History] Simvastatin [Zocor] 40 mg PO 1800 01/08/19 [History] levoFLOXacin [Levaquin] 500 mg PO DAILY 3 Days #3 tablet 01/08/19 [Rx] risperiDONE [RisperDAL] 0.25 mg PO 1200 01/08/19 [History] risperiDONE [Risperidone] 0.5 mg PO 0400,1800 01/08/19 [History] Allergies/Adverse Reactions: Allergy/AdvReac Type Severity Reaction Status Date / Time No Known Allergies Allergy Verified 01/06/19 09:59 - Respiratory Orders Smoking Cessation: Smoking cessation has been advised. For more information, call the [place] Tobacco Quit Line at 3-870-GRLE-NOW. - Advance Directives Code Status: DNR-Arrest/Don't Intubate - Mobility Orders Ambulate - Diet Orders Cardiac CERTIFICATION: I certify that the transfer of the above named patient to an Extended Care Facility is necessary for the continuing treatment of the diagnosis listed. The above information is true and accurate reflection of patient's current condition. Confidential - Redisclosure prohibited without a patient's written consent.
--- NOTE | 2019-01-08 16:20 | Electrocardiograph Report ---
[address] [address] Test Date: 2019-01-06 Pat Name: Erna Cabral Department: EXAM4 Room: [facility] Gender: F Durable Medical Equipment Technician: : 1930 Requested By: Gamaliel Barnhart Order Number: [id number] Reading MD: Milo Arnold Measurements Intervals [place] Rate: 82 P: 54 ME: 158 QRS: 3 QRSD: 95 T: 133 QT: 383 QTc: 448 Interpretive Statements Sinus rhythm with PACs Nonspecific ST-T abnormalities Electronically Signed On 01-08-2019 16:19:08 EST by Milo Arnold
== END 2019-01-08 14:14 | DRG 193 ==
LOC: EMEROOARM 09:48 → SUATTDRO 16:21 → 3NENU 16:21
PROVIDERS: ADMIT Internal Medicine; ATTEND Student in an Organized Health Care Education/Training Program